=== PATIENT | male | born 1970 | race Hispanic/Latino ===

== ENCOUNTER 2017-11-23 03:30 | Emergency (ER) | payer OTHER ==
[~2017-11-23] VITALS: Ht 157.5 cm; Wt 144.2 kg
[~2017-11-23 03:30] MED LIST: ALDACTONE25 MG PO; AMOXICILLIN250 MG PO; ASPIR 8181 MG PO; CARAFATE1 GM PO; DIGOXIN125 MCG PO; FUROSEMIDE40 MG PO; KLOR-CON M2020 MEQ PO; LASIX40 MG PO; LISINOPRIL2.5 MG PO; METOLAZONE5 MG PO; PROMETHAZINE HC25 M1 PO; PROTONIX40 MG/ML PO
[2017-11-23] MEDS ORDERED: OXYMETAZOLINE HCL 0.05% NAS 1 SPRAY BTL STA (03:51)
[2017-11-23] MEDS ORDERED: SILVER NITRATE SWABS ONE (04:42)
[2017-11-23] MEDS ORDERED: SILVER NITRATE SWABS TOP ONE (04:45)
== END 2017-11-23 07:11 | disposition home or self-care (01) ==
LOC: ER 03:30
DX: R04.0 Epistaxis (principal); I50.9 Heart failure, unspecified; M10.9 Gout, unspecified
CPT/HCPCS: 99283

== ENCOUNTER 2018-02-18 15:30 | Emergency (ER) | payer OTHER ==
[~2018-02-18] VITALS: Ht 157.5 cm; Wt 135.2 kg
--- OUTSIDE RECORDS SUMMARY | 2018-02-18 15:32 | XMS REPORT | Continuity of Care Document ---
Author Author [facility] Organization [facility] Address [address] [place] [address] Phone Unavailable Care Team Providers Care Consumer Science Teacher Name Role Phone JEN BELTRAN DO PCP Insurance Providers [employer]or [employer] Address [address] [place] [address] Payer [facility] Policy Number [id number] Subscriber's Name [employer] Relationship 18 Self / Same As Patient Effective Date 15 Expiration Date 16 Advance Directives Directive Response Recorded Date/Time Does the patient have an advance directive? No 07/26/16 7:10pm If yes, is advance directive on file with [facility]? No 07/26/16 7:10pm If not on file with [facility] will patient provide a copy? No 07/26/16 7:10pm Do you have a Directive to Physician? No 11/23/17 6:37am Do you have a Medical Power of Svp Group Director? No 11/23/17 6:37am Do you have an out of hospital Do Not Resuscitate Order? No 11/23/17 6:37am Do you have any special needs we should be aware of? No 11/23/17 6:37am Do you have a support person here with you today? Yes 11/23/17 6:37am Did patient receive Notice of Privacy Practices? Yes 11/23/17 6:37am Did patient receive patient rights and responsibilities? Yes 11/23/17 6:37am Problems Medical Problem Onset Date Status CHF (congestive heart failure) Unknown Hypoxia 10/14/2015 Acute Pulmonary edema 10/14/2015 Acute Medications Current Home Medications Medication Dose Units Route Directions Days Qty Instructions Start Date Aspirin (Aspir 81) 81 Mg Tablet.dr 81 Mg Oral Daily Digoxin 125 Mcg Tablet 0.125 Mg Oral Daily 30 Tab Furosemide 40 Mg Tablet 40 Mg Oral Daily 30 Tab 07/28/16 Lisinopril 2.5 Mg Tablet 5 Mg Oral Daily 30 Days 07/28/16 Metolazone 5 Mg Tablet 10 Mg Oral Daily 30 Tab Pantoprazole Sod (Protonix) 40 Mg/Ml Susp 40 Mg Oral Twice Daily Before Meals 30 Days 07/28/16 Potassium Chloride (Klor-Con M20) 20 Meq Tabcr 20 Meq Oral Daily 30 Days 07/28/16 Promethazine Hcl 25 Mg Tablet 1 Tsp Oral Every 6 Hours Sucralfate (Carafate) 1 Gm Tablet 1 Gm Oral Four Times Daily 30 Days 30 07/28/16 Past Home Medications Medication Directions Ordered Status Amoxicillin 250 Mg Capsule, 500 Mg Oral Three Times A Day Discontinued Furosemide (Lasix) 40 Mg Tablet, 80 Mg Oral Daily Discontinued Spironolactone (Aldactone) 25 Mg Tablet, 50 Mg Oral Daily Discontinued Social History Social History Problem Response Recorded Date/Time Onset Date Status Hx Psychiatric Problems No 07/26/2016 7:10pm Not Applicable Not Applicable Hx Eating Disorder No 07/26/2016 7:10pm Not Applicable Not Applicable Hx Substance Use Disorder No 07/26/2016 7:10pm Not Applicable Not Applicable Hx Depression No 07/26/2016 7:10pm Not Applicable Not Applicable Hx Alcohol Use No 07/26/2016 7:10pm Not Applicable Not Applicable Hx Substance Use Treatment No 07/26/2016 7:10pm Not Applicable Not Applicable Hx Physical Abuse No 07/26/2016 7:10pm Not Applicable Not Applicable Smoking Status Start Date Stop Date Never Smoker Hospital Discharge Instructions No hospital discharge instruction information available. Plan of Care Discharge Date 11/23/17 7:11am Disposition HOME, SELF-CARE Condition at Discharge Stable Instructions/Education Provided Epistaxis - Adult Forms Provided Work/School Excuse Prescriptions See Medication Section Referrals THEODORE DAVALOS MD Address: [address] [place] [address] [address] [address] Functional Status No functional status information available. Allergies, Adverse Reactions, Alerts No known allergies. Immunizations No immunization information available. Vital Signs Acute Vital Signs Vital Response Date/Time Height 5 ft 2 in 11/23/2017 3:46am Weight 318 lb 11/23/2017 3:46am Body Mass Index 58.2 kg/m^2 11/23/2017 3:46am Results No relevant diagnostic test, laboratory data and/or discharge summary information available. Procedures No procedure information available. Encounters Encounter Location Arrival/Admit Date Discharge/Depart Date Attending Provider Departed Emergency Room [facility] 11/23/17 3:30am 7:11am BIB SNOW MD
[2018-02-18] MEDS ORDERED: INDOMETHACIN 75 MG CAPCR PO SCH (15:45)
[2018-02-18] MEDS ORDERED: DEXAMETHASONE SOD PHOS 10 MG/1 ML VIAL INJ ONE (16:00)
[2018-02-18] MEDS ORDERED: HYDROCODONE/APAP 10MG-325MG TAB PO ONE (16:00)
--- NOTE | 2018-02-18 16:03 | Diagnostic Imaging Report ---
Left Ankle - 3 views HISTORY: Pain. COMPARISON: None available. FINDINGS: Bones: No acute displaced fracture. Well corticated bone fragment is noted inferior to the medial malleolus. No expansile lytic or sclerotic lesion. Joints: The joint spaces are well-maintained. No dislocation. Soft tissues: Soft tissue swelling is present in the medial and lateral malleoli. IMPRESSION: Well corticated bone fragment inferior to the medial malleolus may represent an avulsion fracture. No acute displaced fracture or dislocation. Soft tissue swelling may represent a ligamentous injury. Signed by: Dr. Papa Alvarado M.D. on 02/18/2018 3:59 PM
[2018-02-18] MEDS ORDERED: ULORIC80 MG PO (16:18)
[2018-02-18] MEDS ORDERED: POTASSIUM CHLORIDE PO (16:18)
[2018-02-18] MEDS ORDERED: INDOMETHACIN50 MG PO (16:18)
[2018-02-18] MEDS ORDERED: PANTOPRAZOLE SO40 MG PO (16:18)
[2018-02-18 16:43] LABS: BASOPHILS # (AUTO) 0.1 (0.0-0.1); BASOPHILS % 1.3 % (0.0-1.0); EOSINOPHILS # (AUTO) 0.1 (0.0-0.4); EOSINOPHILS % 1.3 % (0.0-6.0); HEMATOCRIT 55.3 % (38.2-49.6); HEMOGLOBIN 19.1 g/dL (14.0-18.0); LYMPHOCYTES # (AUTO) 1.3 (1.0-3.2); LYMPHOCYTES % 13.8 % (18.0-39.1); MEAN CORPUSCULAR HEMOGLOBIN 31.1 pg (28-32); MEAN CORPUSCULAR HGB CONC 34.5 g/dL (31-35); MEAN CORPUSCULAR VOLUME 89.9 fL (81-99); MONOCYTES # (AUTO) 0.9 (0.2-0.8); MONOCYTES % 10.4 % (4.4-11.3); NEUTROPHILS # (AUTO) 6.6 (2.1-6.9); NEUTROPHILS % 72.5 % (38.7-80.0); PLATELET COUNT 237 x10e3/uL (140-360); RED BLOOD COUNT 6.15 x10e6/uL (4.3-5.7); RED CELL DISTRIBUTION WIDTH 14.2 % (11.7-14.4)
[2018-02-18 17:11] LABS: ALANINE AMINOTRANSFERASE 16 IU/L (0-55); ALBUMIN 3.4 g/dL (3.5-5.0); ALBUMIN/GLOBULIN RATIO 0.7 (0.8-2.0); ALKALINE PHOSPHATASE 161 IU/L (40-150); ANION GAP 17.9 mmol/L (8-16); BLOOD UREA NITROGEN 34 mg/dL (7-26); BUN/CREATININE RATIO 28 (6-25); CALCIUM 10.3 mg/dL (8.4-10.2); CARBON DIOXIDE 26 mmol/L (22-29); CHLORIDE 97 mmol/L (98-107); CREATININE, SERUM 1.21 mg/dL (0.72-1.25); EST GLOMERULAR FILTRATION RATE > 60 ML/MIN (60-); GLUCOSE 115 mg/dL (74-118); SODIUM 138 mmol/L (136-145)
[2018-02-18 17:14] LABS: POTASSIUM 2.9 mmol/L (3.5-5.1)
[2018-02-18] MEDS ORDERED: POTASSIUM CHLORIDE 20 MEQ TAB CR PO ONE (18:00)
== END 2018-02-18 18:53 | disposition home or self-care (01) ==
LOC: ER 15:30
DX: M10.072 Idiopathic gout, left ankle and foot (principal); M25.572 Pain in left ankle and joints of left foot
CPT/HCPCS: 36415; 73610; 80053; 84550; 85025; 99283; J1100

== ENCOUNTER 2018-03-11 09:37 | Emergency (ER) | payer OTHER ==
[~2018-03-11] VITALS: Ht 157.5 cm; Wt 131.1 kg
[~2018-03-11 09:37] MED LIST changes: +INDOMETHACIN50 MG PO; +PANTOPRAZOLE SO40 MG PO; +POTASSIUM CHLORIDE PO; +ULORIC80 MG PO
--- OUTSIDE RECORDS SUMMARY | 2018-03-11 09:39 | XMS REPORT ---
Author Author [facility] Address Unknown Phone Unavailable Care Team Providers Care Ict Teacher Name Role Phone BIB SNOW Unavailable Unavailable Problems This patient has no known problems. Allergies, Adverse Reactions, Alerts This patient has no known allergies or adverse reactions. Medications This patient has no known medications. Results Test Description Test Time Test Comments Text Results Atomic Results Result Comments ANKLE 3+ VIEWS LEFT [facility] [address] [address] Patient Name: RUCHI STOKES MR #: [id number] : 1970 Age/Sex: 47/M Req #: [id number] Adm Physician: Ordered by: ALIE EDMONDSON DISTRIBUTION OPERATIONS MANAGER Report #: [id number] Location: ER Room/Bed: Procedure: [id number] DX/ANKLE 3+ VIEWS LEFT Exam Date: Exam Time: REPORT STATUS: Signed Left Ankle - 3 views HISTORY: Pain. COMPARISON: None available. FINDINGS: Bones: No acute displaced fracture. Well corticated bone fragment is noted inferior to the medial malleolus. No expansile lytic or sclerotic lesion. Joints: The joint spaces are well-maintained. No dislocation. Soft tissues: Soft tissue swelling is present in the medial and lateral malleoli. IMPRESSION: Well corticated bone fragment inferior to the medial malleolus may represent an avulsion fracture. No acute displaced fracture or dislocation. Soft tissue swelling may represent a ligamentous injury. Signed by: Dr. Dutch Starr M.D. on 02/18/2018 3:59 PM Dictated By: DUTCH STARR MD [id number] Transcribed By: PRIMO on 02/18/18 [id number] COPY TO: ALIE EDMONDSON NP
--- OUTSIDE RECORDS SUMMARY | 2018-03-11 09:39 | XMS REPORT | Continuity of Care Document ---
Author Author [facility] Organization [facility] Address [address] [place] [address] Phone Unavailable Care Team Providers Care Pig Iron Loader Name Role Phone JEN BELTRAN DO PCP Insurance Providers Guarantor [employer] Address [address] [place] [address] Email NONE Payer [facility] Policy Number [id number] Subscriber's Name [employer] Relationship 18 Self / Same As Patient Effective Date 15 Expiration Date 16 Advance Directives Directive Response Recorded Date/Time Does the patient have an advance directive? No 07/26/16 7:10pm If yes, is advance directive on file with [facility]? No 07/26/16 7:10pm If not on file with [facility] will patient provide a copy? No 07/26/16 7:10pm Do you have a Directive to Physician? No 02/18/18 3:43pm Do you have a Medical Power of Middle School Baseball Coach? No 02/18/18 3:43pm Do you have an out of hospital Do Not Resuscitate Order? No 02/18/18 3:43pm Do you have any special needs we should be aware of? No 02/18/18 3:43pm Do you have a support person here with you today? Yes 02/18/18 3:43pm Did patient receive Notice of Privacy Practices? Yes 02/18/18 3:43pm Did patient receive patient rights and responsibilities? Yes 02/18/18 3:43pm Problems Medical Problem Onset Date Status CHF (congestive heart failure) Unknown Hypoxia 10/14/2015 Acute Pulmonary edema 10/14/2015 Acute Medications Current Home Medications Medication Dose Units Route Directions Days Qty Instructions Start Date Aspirin (Aspir 81) 81 Mg Tablet.dr 81 Mg Oral Daily Febuxostat (Uloric) 80 Mg Tablet 80 Mg Oral Daily 30 Tab Furosemide 40 Mg Tablet 40 Mg Oral Daily 30 Tab 07/28/16 Indomethacin 50 Mg Capsule 50 Mg Oral Twice A Day as needed for Pain Metolazone 5 Mg Tablet 10 Mg Oral Daily 30 Tab Pantoprazole Sodium (Protonix) 40 Mg Tablet.dr 40 Mg Oral Daily Potassuim Cl Susp 20 Meq Oral Daily Past Home Medications Medication Directions Ordered Status Amoxicillin 250 Mg Capsule, 500 Mg Oral Three Times A Day Discontinued Digoxin 125 Mcg Tablet, 0.125 Mg Oral Daily Discontinued Furosemide (Lasix) 40 Mg Tablet, 80 Mg Oral Daily Discontinued Lisinopril 2.5 Mg Tablet, 5 Mg Oral Daily 07/28/16 Discontinued Pantoprazole Sod (Protonix) 40 Mg/Ml Susp, 40 Mg Oral Twice Daily Before Meals 07/28/16 Discontinued Potassium Chloride (Klor-Con M20) 20 Meq Tabcr, 20 Meq Oral Daily 07/28/16 Discontinued Promethazine Hcl 25 Mg Tablet, 1 Tsp Oral Every 6 Hours Discontinued Spironolactone (Aldactone) 25 Mg Tablet, 50 Mg Oral Daily Discontinued Sucralfate (Carafate) 1 Gm Tablet, 1 Gm Oral Four Times Daily 07/28/16 Discontinued Social History Social History Problem Response [...] information available. Plan of Care Discharge Date 02/18/18 6:53pm Disposition HOME, SELF-CARE Condition at Discharge Stable Instructions/Education Provided Gout Forms Provided Work/School Excuse Prescriptions See Medication Section Referrals JEN BELTRAN DO Address: [address] [place] [address] REBECCA DONOVAN MD Address: [address] [place] [address] [address] [place] [address] Additional Instructions/Education 1. increase oral fluids 2. follow up with your doctor in 1-2 days without fail 3. return to ed as needed 4. crutches / acewrap if comfortable Functional Status No functional status information available. Allergies, Adverse Reactions, Alerts No known allergies. Immunizations No immunization information available. Vital Signs Acute Vital Signs Vital Response Date/Time Height 5 ft 2 in 02/18/2018 4:04pm Weight 298 lb 02/18/2018 4:04pm Body Mass Index 54.5 kg/m^2 02/18/2018 4:04pm Results Laboratory Results Test Name Result Units Flags Reference Collection Date/Time Result Date/ Time Comments White Blood Count 9.06 x10e3/uL 4.8-10.8 02/18/2018 4:20pm 02/18/2018 4 :44pm Red Blood Count 6.15 x10e6/uL H 4.3-5.7 02/18/2018 4:20pm 02/18/2018 4: 44pm Hemoglobin 19.1 g/dL H 14.0-18.0 02/18/2018 4:20pm 02/18/2018 4:44pm Hematocrit 55.3 % H 38.2-49.6 02/18/2018 4:20pm 02/18/2018 4:44pm Mean Corpuscular Volume 89.9 fL 81-99 02/18/2018 4:20pm 02/18/2018 4: 44pm Mean Corpuscular Hemoglobin 31.1 pg 28-32 02/18/2018 4:20pm 02/18/2018 4:44pm Mean Corpuscular Hemoglobin Concent 34.5 g/dL 31-35 02/18/2018 4:20pm 02/18/2018 4:44pm Red Cell Distribution Width 14.2 % 11.7-14.4 02/18/2018 4:20pm 2017 4:44pm Platelet Count 237 x10e3/uL 140-360 02/18/2018 4:20pm 02/18/2018 4: 44pm Neutrophils (%) (Auto) 72.5 % 38.7-80.0 02/18/2018 4:20pm 02/18/2018 4: 44pm Lymphocytes (%) (Auto) 13.8 % L 18.0-39.1 02/18/2018 4:20pm 02/18/2018 4 :44pm Monocytes (%) (Auto) 10.4 % 4.4-11.3 02/18/2018 4:20pm 02/18/2018 4: 44pm Eosinophils (%) (Auto) 1.3 % 0.0-6.0 02/18/2018 4:20pm 02/18/2018 4: 44pm Basophils (%) (Auto) 1.3 % H 0.0-1.0 02/18/2018 4:20pm 02/18/2018 4: 44pm IM GRANULOCYTES % 0.7 % 0.0-1.0 02/18/2018 4:20pm 02/18/2018 4:44pm Neutrophils # (Auto) 6.6 2.1-6.9 02/18/2018 4:20pm 02/18/2018 4:44pm Lymphocytes # (Auto) 1.3 1.0-3.2 02/18/2018 4:20pm 02/18/2018 4:44pm Monocytes # (Auto) 0.9 H 0.2-0.8 02/18/2018 4:20pm 02/18/2018 4:44pm Eosinophils # (Auto) 0.1 0.0-0.4 02/18/2018 4:20pm 02/18/2018 4:44pm Basophils # (Auto) 0.1 0.0-0.1 02/18/2018 4:20pm 02/18/2018 4:44pm Absolute Immature Granulocyte (auto 0.06 x10e3/uL 0-0.1 02/18/2018 4: 20pm 02/18/2018 4:44pm Sodium Level 138 mmol/L 136-145 02/18/2018 4:20pm 02/18/2018 5:15pm Potassium Level 2.9 mmol/L *L 3.5-5.1 02/18/2018 4:20pm 02/18/2018 5: 15pm Results called to Annette/RN at 1713 on 02/18/18 by Kan Gilliland. RB OK. Chloride Level 97 mmol/L L 98-107 02/18/2018 4:20pm 02/18/2018 5:15pm Carbon Dioxide Level 26 mmol/L 22-29 02/18/2018 4:20pm 02/18/2018 5: 15pm Anion Gap 17.9 mmol/L H 8-16 02/18/2018 4:20pm 02/18/2018 5:15pm Blood Urea Nitrogen 34 mg/dL H 7-02/18/2018 4:20pm 02/18/2018 5:15pm Creatinine 1.21 mg/dL 0.72-1.25 02/18/2018 4:20pm 02/18/2018 5:15pm BUN/Creatinine Ratio 28 H 6-02/18/2018 4:20pm 02/18/2018 5:15pm Estimat Glomerular Filtration Rate > 60 ML/MIN 60- 02/18/2018 4:20 5:15pm Ranges were taken from the National Kidney Disease Education Program and the National Kidney Foundation literature. Reference ranges: 60 or greater: Normal 16-59 (for 3 consecutive months): Chronic kidney disease 15 or less: Kidney failure Glucose Level 115 mg/dL 74-118 02/18/2018 4:20pm 02/18/2018 5:15pm Calcium Level 10.3 mg/dL H 8.4-10.2 02/18/2018 4:20pm 02/18/2018 5:15pm Uric Acid 9.5 mg/dL H 4.8-8.0 02/18/2018 4:20pm 02/18/2018 5:35pm Total Bilirubin 2.4 mg/dL H 0.2-1.2 02/18/2018 4:20pm 02/18/2018 5:15pm Aspartate Amino Transf (AST/SGOT) 18 IU/L 5-34 02/18/2018 4:20pm 2017 5:15pm Alanine Aminotransferase (ALT/SGPT) 16 IU/L 0-55 02/18/2018 4:20pm 5:15pm Total Protein 8.6 g/dL H 6.5-8.1 02/18/2018 4:20pm 02/18/2018 5:15pm Albumin 3.4 g/dL L 3.5-5.0 02/18/2018 4:20pm 02/18/2018 5:15pm Globulin 5.2 g/dL H 2.3-3.5 02/18/2018 4:20pm 02/18/2018 5:15pm Albumin/Globulin Ratio 0.7 L 0.8-2.0 02/18/2018 4:20pm 02/18/2018 5: 15pm Alkaline Phosphatase 161 IU/L H 40-150 02/18/2018 4:20pm 02/18/2018 5: 15pm Procedures No procedure information available. Encounters Encounter Location Arrival/Admit Date Discharge/Depart Date Attending Provider Departed Emergency Room [facility] 02/18/18 3:30pm 6:53pm BIB SNOW MD Departed Emergency Room [facility] 11/23/17 3:30am 7:11am BIB SNOW MD
[2018-03-11 10:58] LABS: BASOPHILS # (AUTO) 0.1 (0.0-0.1); BASOPHILS % 0.9 % (0.0-1.0); EOSINOPHILS # (AUTO) 0.2 (0.0-0.4); HEMATOCRIT 51.1 % (38.2-49.6); HEMOGLOBIN 17.7 g/dL (14.0-18.0); LYMPHOCYTES # (AUTO) 1.4 (1.0-3.2); LYMPHOCYTES % 18.1 % (18.0-39.1); MEAN CORPUSCULAR HEMOGLOBIN 31.2 pg (28-32); MEAN CORPUSCULAR HGB CONC 34.6 g/dL (31-35); MONOCYTES # (AUTO) 0.7 (0.2-0.8); MONOCYTES % 9.4 % (4.4-11.3); NEUTROPHILS # (AUTO) 5.2 (2.1-6.9); NEUTROPHILS % 67.9 % (38.7-80.0); PLATELET COUNT 229 x10e3/uL (140-360); RED BLOOD COUNT 5.68 x10e6/uL (4.3-5.7); RED CELL DISTRIBUTION WIDTH 13.8 % (11.7-14.4)
[2018-03-11 11:14] LABS: ALANINE AMINOTRANSFERASE 13 IU/L (0-55); ALBUMIN 3.4 g/dL (3.5-5.0); ALBUMIN/GLOBULIN RATIO 0.8 (0.8-2.0); ALKALINE PHOSPHATASE 134 IU/L (40-150); ANION GAP 17.7 mmol/L (8-16); BLOOD UREA NITROGEN 24 mg/dL (7-26); BUN/CREATININE RATIO 25 (6-25); CALCIUM 9.9 mg/dL (8.4-10.2); CARBON DIOXIDE 27 mmol/L (22-29); CHLORIDE 97 mmol/L (98-107); CREATININE, SERUM 0.96 mg/dL (0.72-1.25); EST GLOMERULAR FILTRATION RATE > 60 ML/MIN (60-); GLUCOSE 113 mg/dL (74-118); SODIUM 139 mmol/L (136-145)
[2018-03-11 11:16] LABS: POTASSIUM 2.7 mmol/L (3.5-5.1)
[2018-03-11] MEDS ORDERED: POTASSIUM CHLORIDE 20 MEQ TAB CR PO NR (11:45)
[2018-03-11 12:39] VITALS: BP 101/60
== END 2018-03-11 13:09 | disposition home or self-care (01) ==
LOC: ER 09:37
DX: M62.81 Muscle weakness (generalized) (principal); E87.6 Hypokalemia; M10.062 Idiopathic gout, left knee; M10.061 Idiopathic gout, right knee; I50.9 Heart failure, unspecified; E66.9 Obesity, unspecified
CPT/HCPCS: 36415; 80053; 85025; 99284

== ENCOUNTER 2019-02-03 21:21 | Emergency (ER) | payer OTHER ==
[~2019-02-03] VITALS: Ht 157.5 cm; Wt 127.0 kg
[2019-02-03] MEDS ORDERED: SODIUM CHLORIDE 0.9% 1000ML 1,000 ML IV STA (21:39)
[2019-02-03] MEDS ORDERED: ONDANSETRON HCL INJ 2MG/ML 2ML 2 MG/ML VIAL IV STA (21:39)
[2019-02-03] MEDS ORDERED: MORPHINE SULFATE INJ 4 MG/ML INJ 1ML IV STA (21:39)
--- NOTE | 2019-02-03 21:50 | NUR ---
RADIOLOGY AT BEDSIDE FOR CXR AT THIS TIME.
[2019-02-03] MEDS ORDERED: SODIUM CHLORIDE 0.9% 500ML 500 ML IV ONE (22:00)
--- NOTE | 2019-02-03 22:20 | Diagnostic Imaging Report ---
EXAMINATION: CHEST SINGLE (PORTABLE) INDICATION: ^ABD PAIN COMPARISON: Chest x-ray 07/25/2016 FINDINGS: AP view TUBES and LINES: None. LUNGS: Lungs are well inflated. There are bibasilar atelectasis. Pulmonary arterial hypertension and pulmonary venous congestion. PLEURA: No pleural effusion or pneumothorax. HEART AND MEDIASTINUM: Cardiac size is moderately enlarged. Enlargement pulmonary artery and left atrial bulge. BONES AND SOFT TISSUES: No acute osseous lesion. Soft tissues are unremarkable. UPPER ABDOMEN: No free air under the diaphragm. IMPRESSION: Unchanged moderate cardiomegaly with pulmonary arterial hypertension and venous congestion. Signed by: Dr. Alonzo Zee M.D. on 02/03/2019 10:17 PM
[2019-02-03 22:50] LABS: BASOPHILS # (AUTO) 0.1 (0.0-0.1); BASOPHILS % 0.7 % (0.0-1.0); EOSINOPHILS # (AUTO) 0.2 (0.0-0.4); EOSINOPHILS % 1.6 % (0.0-6.0); HEMATOCRIT 58.6 % (38.2-49.6); HEMOGLOBIN 19.5 g/dL (14.0-18.0); LYMPHOCYTES # (AUTO) 1.3 (1.0-3.2); LYMPHOCYTES % 9.9 % (18.0-39.1); MEAN CORPUSCULAR HEMOGLOBIN 32.6 pg (28-32); MEAN CORPUSCULAR HGB CONC 33.3 g/dL (31-35); MONOCYTES # (AUTO) 1.2 (0.2-0.8); NEUTROPHILS # (AUTO) 10.5 (2.1-6.9); NEUTROPHILS % 78.3 % (38.7-80.0); PLATELET COUNT 152 x10e3/uL (140-360); RED BLOOD COUNT 5.98 x10e6/uL (4.3-5.7); RED CELL DISTRIBUTION WIDTH 12.7 % (11.7-14.4)
[2019-02-03 23:00] LABS: INR 1.1; PROTHROMBIN TIME 14.7 seconds (11.9-14.5)
--- NOTE | 2019-02-03 23:00 | NUR ---
REPORT GIVEN TO JIM MOHAN. PT RESTING IN BED, BREATHING EVEN/UNLABORED, NAD NOTED.
[2019-02-03 23:10] LABS: ALANINE AMINOTRANSFERASE 16 IU/L (0-55); ALBUMIN 3.8 g/dL (3.5-5.0); ALBUMIN/GLOBULIN RATIO 1.1 (0.8-2.0); ALKALINE PHOSPHATASE 124 IU/L (40-150); AMYLASE 31 U/L (25-125); ANION GAP 14.8 mmol/L (8-16); BLOOD UREA NITROGEN 21 mg/dL (7-26); BUN/CREATININE RATIO 22 (6-25); CALCIUM 9.6 mg/dL (8.4-10.2); CARBON DIOXIDE 25 mmol/L (22-29); CHLORIDE 102 mmol/L (98-107); CREATINE KINASE 51 IU/L (30-200); CREATININE, SERUM 0.94 mg/dL (0.72-1.25); EST GLOMERULAR FILTRATION RATE > 60 ML/MIN (60-); GLUCOSE 73 mg/dL (74-118); LIPASE 18 U/L (8-78); MAGNESIUM 1.8 MG/DL (1.3-2.1); POTASSIUM 3.8 mmol/L (3.5-5.1); SODIUM 138 mmol/L (136-145)
[2019-02-03 23:12] LABS: CLARITY,URINE CLEAR (CLEAR); COLOR,URINE YELLOW (YELLOW); KETONES,URINE NEGATIVE (NEGATIVE); LEUKOCYTE ESTERASE ,URINE NEGATIVE (NEGATIVE); NITRITE,URINE NEGATIVE (NEGATIVE); PROTEIN,URINE DIPSTICK NEGATIVE (NEGATIVE)
[2019-02-03 23:13] LABS: BACTERIA,URINE RARE /HPF; BILIRUBIN,URINE NEGATIVE (NEGATIVE); EPITHELIAL CELLS,URINE FEW /LPF; RBC,URINE 0-5 /HPF (0-5); URINE UROBILINOGEN 4 mg/dL (0.2 - 1); WBC,URINE (MAN) 0-5 /HPF (0-5)
[2019-02-04] MEDS ORDERED: SODIUM CHLORIDE 0.9% 50ML 50 ML ONE
[2019-02-04] MEDS ORDERED: IOPAMIDOL 370 MG/ML 200 ML INFUS..BTL INJ ONE
--- NOTE | 2019-02-04 00:49 | Diagnostic Imaging Report ---
EXAM: CT Abdomen and Pelvis WITH contrast INDICATION: ^RUQ/GLO ABD PAIN COMPARISON: Report of CT abdomen pelvis performed on 07/25/2016. TECHNIQUE: Abdomen and pelvis were scanned utilizing a multidetector helical scanner from the lung base to the pubic symphysis after administration of IV contrast. Coronal and sagittal reformations were obtained. Routine protocol was performed. Scan was performed when during portal venous phase. IV CONTRAST: 100 mL of Isovue 370 ORAL CONTRAST: Water COMPLICATIONS: None RADIATION DOSE: Total DLP: 827.97 mGy*cm Estimated effective dose: (DLP x 0.015 x size factor) mSv CTDIvol has been reviewed. It is below the limits set by the Radiation Protocol Committee (RPC). Dose modulation, iterative reconstruction, and/or weight based adjustment of the mA/kV was utilized to reduce the radiation dose to as low as reasonably achievable. FINDINGS: LINES and TUBES: None. LOWER THORAX: Atelectasis in both lower lobes with questionable more focal groundglass opacity in the right lower lobe. Mild air trapping in the left lower lobe. Moderate cardiomegaly with large right atrium and right ventricle with straightening of the interventricular septum bowing to the left side of the heart. HEPATOBILIARY: Mildly enlargement of the left hepatic lobe. No significant surface nodularity. No focal hepatic lesions. No biliary ductal dilation. GALLBLADDER: No radio-opaque stones or sludge. No wall thickening. SPLEEN: No splenomegaly. PANCREAS: No focal masses or ductal dilatation. ADRENALS: No adrenal nodules KIDNEYS/URETERS: Kidneys enhance symmetrically. No hydronephrosis. No cystic or solid mass lesions. No stones. GI TRACT: Focal 3.5 cm long wall thickening of the hepatic flexure of the colon (series 2, image 35). No abnormal distention, wall thickening, or evidence of bowel obstruction. There are diverticula within the colon without evidence of diverticulitis. Appendix is normal. PELVIC ORGANS/BLADDER: Bladder is incompletely distended but but there may be mild wall thickening with mild surrounding inflammatory changes. Prostate measures 6.0 cm in transverse dimension. LYMPH NODES: No lymphadenopathy. VESSELS: There is mild atherosclerotic disease in the aorta and major arterial branches. PERITONEUM / RETROPERITONEUM: No free air or fluid. BONES: Unremarkable. SOFT TISSUES: Unremarkable. IMPRESSION: 1. Bilateral lower lobe atelectasis. Questionable focal pneumonia in the right lower lobe. 2. Moderate cardiomegaly with enlarged right atrium and right ventricle with septal straightening and mild deviation to left. 3. 3.5 cm short segment narrowing of the hepatic flexure of the colon. Recommend colonoscopy to exclude a possible underlying colonic neoplasm. 4. Bladder is incompletely distended with questionable mild wall thickening. Recommend correlation with UA. Signed by: Dr. Alonzo Zee M.D. on 02/04/2019 12:46 AM
[2019-02-04 03:11] VITALS: BP 108/58
== END 2019-02-04 03:38 | disposition home or self-care (01) ==
LOC: ER 21:21
DX: R10.11 Right upper quadrant pain (principal); R11.0 Nausea; I50.32 Chronic diastolic (congestive) heart failure
CPT/HCPCS: 36415; 71045; 74177; 80053; 81001; 82150; 82550; 82553; 83690; 83735; 83880; 84484; 85025; 85610; 85730; 99284; J2270; J2405; J7040

== ENCOUNTER 2020-04-23 10:29 | Inpatient (IN) | payer OTHER ==
[~2020-04-23] VITALS: Ht 157.5 cm; Wt 127.0 kg
[2020-04-23] MEDS ORDERED: ONDANSETRON HCL INJ 2MG/ML 2ML 2 MG/ML VIAL IV STA (11:35)
[2020-04-23] MEDS ORDERED: PANTOPRAZOLE 40 MG 10ML VIAL IV STA (11:35)
[2020-04-23 12:17] LABS: BASOPHILS # (AUTO) 0.1 (0.0-0.1); BASOPHILS % 1.5 % (0.0-1.0); EOSINOPHILS # (AUTO) 0.2 (0.0-0.4); HEMATOCRIT 49.7 % (38.2-49.6); HEMOGLOBIN 14.9 g/dL (14.0-18.0); LYMPHOCYTES # (AUTO) 0.9 (1.0-3.2); LYMPHOCYTES % 14.7 % (18.0-39.1); MEAN CORPUSCULAR HEMOGLOBIN 23.5 pg (28-32); MEAN CORPUSCULAR VOLUME 78.5 fL (81-99); MONOCYTES # (AUTO) 0.8 (0.2-0.8); MONOCYTES % 13.6 % (4.4-11.3); NEUTROPHILS % 66.7 % (38.7-80.0); PLATELET COUNT 163 x10e3/uL (140-360); RED BLOOD COUNT 6.33 x10e6/uL (4.3-5.7); RED CELL DISTRIBUTION WIDTH 21.3 % (11.7-14.4)
[2020-04-23 12:33] LABS: INR 1.34; PROTHROMBIN TIME 17.5 seconds (11.9-14.5)
[2020-04-23 12:34] LABS: PARTIAL THROMBOPLASTIN TIME 32.6 seconds (23.8-35.5)
[2020-04-23 12:41] LABS: ALANINE AMINOTRANSFERASE 13 IU/L (0-55); ALBUMIN 3.3 g/dL (3.5-5.0); ALBUMIN/GLOBULIN RATIO 0.9 (0.8-2.0); ALKALINE PHOSPHATASE 184 IU/L (40-150); AMYLASE 28 U/L (25-125); ANION GAP 15.5 mmol/L (8-16); BLOOD UREA NITROGEN 37 mg/dL (7-26); BUN/CREATININE RATIO 32 (6-25); CALCIUM 9.6 mg/dL (8.4-10.2); CARBON DIOXIDE 31 mmol/L (22-29); CHLORIDE 98 mmol/L (98-107); CREATINE KINASE 81 IU/L (30-200); CREATININE, SERUM 1.14 mg/dL (0.72-1.25); EST GLOMERULAR FILTRATION RATE > 60 ML/MIN (60-); GLUCOSE 99 mg/dL (74-118); LIPASE 21 U/L (8-78); MAGNESIUM 1.9 MG/DL (1.3-2.1); SODIUM 142 mmol/L (136-145)
[2020-04-23 12:58] LABS: POTASSIUM 2.5 mmol/L (3.5-5.1)
[2020-04-23] MEDS ORDERED: POTASSIUM CHLORIDE 20 MEQ TAB CR PO STA (13:03)
--- NOTE | 2020-04-23 13:50 | NUR ---
HI FLOW O2 STARTED
--- NOTE | 2020-04-23 13:59 | Diagnostic Imaging Report ---
EXAM: CT Chest, Abdomen and Pelvis WITH intravenous contrast (with pulmonary embolism protocol for the chest) INDICATION: Hypoxia, abdominal pain COMPARISON: CT abdomen and pelvis of 02/04/2019 TECHNIQUE: The chest, abdomen and pelvis were scanned utilizing a multidetector helical scanner from the thoracic inlet to the pubic symphysis following administration of IV contrast. Thin section reconstructions were obtained with special concentration on the pulmonary arteries. Coronal and sagittal reformations were obtained. Scan was performed during portal venous phase. IV CONTRAST: 175cc Isovue 370 ORAL CONTRAST: Water COMPLICATIONS: None RADIATION DOSE: Total DLP: 1904 mGy*cm Dose modulation, iterative reconstruction, and/or weight based adjustment of the mA/kV was utilized to reduce the radiation dose to as low as reasonably achievable. FINDINGS: LINES/ TUBES: None. PULMONARY ARTERIES: No filling defect is identified within the pulmonary arteries to the segmental level. Main pulmonary artery measures 4.8cm in diameter. LUNGS AND AIRWAYS: The central airways are patent. No focal consolidation. Mild smooth interlobular septal thickening can be seen with interstitial pulmonary edema. PLEURA: The pleural spaces are clear. HEART AND MEDIASTINUM: The thyroid gland is normal. No supraclavicular, axillary, mediastinal, or hilar lymphadenopathy. The heart is enlarged. Most notably, there is dilation of the right atrium and ventricle. No pericardial effusion. Scattered atherosclerotic calcifications of the coronary arteries and thoracic aorta. HEPATOBILIARY: Nodular liver surface contour compatible with hepatic cirrhosis. No focal liver lesion. Unremarkable gallbladder. SPLEEN: No splenomegaly. PANCREAS: No focal masses or ductal dilatation. ADRENALS: No adrenal nodules. KIDNEYS/URETERS: No hydronephrosis, stones, or solid mass lesions. PELVIC ORGANS/BLADDER: Unremarkable. PERITONEUM / RETROPERITONEUM: Small volume abdominal ascites. No free air. LYMPH NODES: No lymphadenopathy. VESSELS: Unremarkable. GI TRACT: Diverticulosis without CT evidence of diverticulitis. No abnormal bowel thickening. No bowel obstruction. BONES AND SOFT TISSUES: No acute osseous injury. IMPRESSION: No central pulmonary embolism. Dilation of the main pulmonary artery, right atrium and right ventricle are compatible with pulmonary arterial hypertension and right heart failure. Mild interstitial pulmonary edema. Hepatic cirrhosis. Small volume abdominal ascites. Signed by: Naif Rodriguez MD on 04/23/2020 1:55 PM
[2020-04-23] MEDS ORDERED: SODIUM CHLORIDE 0.9% 50ML 100 ML ONE (14:23)
[2020-04-23] MEDS ORDERED: IOPAMIDOL 370 MG/ML 200 ML INFUS..BTL INJ ONE ×2 (14:23→14:24)
[2020-04-23 15:08] LABS: CLARITY,URINE SL CLOUDY (CLEAR); COLOR,URINE STRAW (YELLOW); KETONES,URINE NEGATIVE (NEGATIVE); LEUKOCYTE ESTERASE ,URINE NEGATIVE (NEGATIVE); NITRITE,URINE NEGATIVE (NEGATIVE); PROTEIN,URINE DIPSTICK NEGATIVE (NEGATIVE)
[2020-04-23 15:09] LABS: BILIRUBIN,URINE NEGATIVE (NEGATIVE); URINE UROBILINOGEN 2 mg/dL (0.2 - 1)
[2020-04-23 15:24] LABS: BACTERIA,URINE RARE /HPF; EPITHELIAL CELLS,URINE FEW /LPF; RBC,URINE 0-5 /HPF (0-5)
[2020-04-23] MEDS ORDERED: FUROSEMIDE INJ 10 MG/ML 4 ML VIAL IV ONE (16:45)
--- NOTE | 2020-04-23 16:50 | Emergency Department Note ---
History of Present Illnes History of Present Illness Chief Complaint: Abdominal Complaints History of Present Illness This is a 49 year old male abd pain x 2 wks. morbidly obese. no distress . Historian: Patient Arrival Mode: Car Re Examiner Required: No Onset (how long ago): week(s) (2) Location: GLO ABD Quality: PAIN Radiation: Reports non-radiation Severity: moderate Onset quality: gradual Timing of current episode: intermittent Progression: waxing and waning Context: Denies recent illness Relieving factors: none Exacerbating factors: none Associated symptoms: Reports denies other symptoms Treatments prior to arrival: none Past Medical/Family History Physician Review I have reviewed the patient's past medical and family history. Any updates have been documented here. Past Medical History Recent Fever: No Clinical Suspicion of Infectio: No New/Unexplained Change in Ment: No Past Medical History: CHF, GERD Other Medical History: GOUT GASTRITIS Past Surgical History: None Social History Smoking Cessation: Never Smoker Counseling Performed: No Alcohol Use: None Any Illegal Drug Use: No TB Exposure/Symptoms: No Physically hurt or threatened: No Other Last Tetanus: OOD Any Pre-Existing Lines (PICC,: No Is patient up to date on immun: Yes Last Flu: utd Last Pneumovax: utd Review of Systems Review of Systems Constitutional: Reports no symptoms EENTM: Reports no symptoms Cardiovascular: Reports no symptoms Respiratory: Reports no symptoms; Denies dyspnea, Denies dyspnea on exertion Gastrointestinal: Reports as per HPI Genitourinary: Reports no symptoms Musculoskeletal: Reports no symptoms Integumentary: Reports no symptoms Neurological: Reports no symptoms Psychological: Reports no symptoms Endocrine: Reports no symptoms Hematological/Lymphatic: Reports no symptoms Physical Exam Related Data Allergies: Coded Allergies: No Known Allergies (Unverified , 03/11/18) Triage Vital Signs Vital Signs Date Time Temp Pulse Resp B/P (MAP) Pulse Ox O2 Delivery O2 Flow Rate FiO2 04/23/20 11:17 96.5 101 18 118/81 79 04/23/20 16:22 15.0 Vital signs reviewed: Yes Physical Exam CONSTITUTIONAL Constitutional: Present well-nourished, Present morbidly obese HENT HENT: Present normocephalic, Present atraumatic, Present oropharynx clear/moist, Present nose normal HENT L/R: Present left ext ear normal, Present right ext ear normal EYES Eyes: Reports PERRL, Reports conjunctivae normal NECK Neck: Present ROM normal PULMONARY Pulmonary: Present effort normal, Present breath sounds normal CARDIOVASCULAR Cardiovascular: Present regular rhythm, Present heart sounds normal, Present capillary refill normal, Present normal rate GASTROINTESTINAL Abdominal: Present soft, Present bowel sounds normal, Present tender (MILD GLO TENDERNESS, NO R/G) GENITOURINARY Genitourinary: Present exam deferred SKIN Skin: Present warm, Present dry MUSCULOSKELETAL Musculoskeletal: Present ROM normal NEUROLOGICAL Neurological: Present alert, Present oriented x 3, Present no gross motor or sensory deficits PSYCHOLOGICAL Psychological: Present mood/affect normal, Present judgement normal Results Laboratory Result Diagram: 04/23/20 1155 04/23/20 1155 Laboratory Laboratory Tests Test 04/23/20 14:45 04/23/20 12:15 04/23/20 11:55 Urine Color Straw (YELLOW) Urine Clarity Sl cloudy (CLEAR) Urine pH 7 (5 - 7) Urine Specific [place] 1.020 (1.010-1.025) Urine Protein Negative (NEGATIVE) Urine Glucose (UA) Negative (NEGATIVE) Urine Ketones Negative (NEGATIVE) Urine Blood Negative (NEGATIVE) Urine Nitrite Negative (NEGATIVE) Urine Bilirubin Negative (NEGATIVE) Urine Urobilinogen 2 mg/dL (0.2 - 1) Urine Leukocyte Esterase Negative (NEGATIVE) Urine RBC 0-5 /HPF (0-5) Urine WBC None /HPF (0-5) Urine Epithelial Cells Few /LPF (NONE) Urine Bacteria Rare /HPF (NONE) White Blood Count 6.05 x10e3/uL (4.8-10.8) Red Blood Count 6.33 x10e6/uL (4.3-5.7) Hemoglobin 14.9 g/dL (14.0-18.0) Hematocrit 49.7 % (38.2-49.6) Mean Corpuscular Volume 78.5 fL (81-99) Mean Corpuscular Hemoglobin 23.5 pg (28-32) Mean Corpuscular Hemoglobin Concent 30.0 g/dL (31-35) Red Cell Distribution Width 21.3 % (11.7-14.4) Platelet Count 163 x10e3/uL (140-360) Neutrophils (%) (Auto) 66.7 % (38.7-80.0) Lymphocytes (%) (Auto) 14.7 % (18.0-39.1) Monocytes (%) (Auto) 13.6 % (4.4-11.3) Eosinophils (%) (Auto) 3.0 % (0.0-6.0) Basophils (%) (Auto) 1.5 % (0.0-1.0) Neutrophils # (Auto) 4.0 (2.1-6.9) Lymphocytes # (Auto) 0.9 (1.0-3.2) Monocytes # (Auto) 0.8 (0.2-0.8) Eosinophils # (Auto) 0.2 (0.0-0.4) Basophils # (Auto) 0.1 (0.0-0.1) Absolute Immature Granulocyte (auto 0.03 x10e3/uL (0-0.1) Prothrombin Time 17.5 seconds (11.9-14.5) Prothromb Time International Ratio 1.34 Activated Partial Thromboplast Time 32.6 seconds (23.8-35.5) Sodium Level 142 mmol/L (136-145) Potassium Level 2.5 mmol/L (3.5-5.1) Chloride Level 98 mmol/L (98-107) Carbon Dioxide Level 31 mmol/L (22-29) Anion Gap 15.5 mmol/L (8-16) Blood Urea Nitrogen 37 mg/dL (7-26) Creatinine 1.14 mg/dL (0.72-1.25) Estimat Glomerular Filtration Rate > 60 ML/MIN (60-) BUN/Creatinine Ratio 32 (6-25) Glucose Level 99 mg/dL (74-118) Calcium Level 9.6 mg/dL (8.4-10.2) Magnesium Level 1.9 MG/DL (1.3-2.1) Total Bilirubin 5.3 mg/dL (0.2-1.2) Aspartate Amino Transf (AST/SGOT) 20 IU/L (5-34) Alanine Aminotransferase (ALT/SGPT) 13 IU/L (0-55) Alkaline Phosphatase 184 IU/L (40-150) Creatine Kinase 81 IU/L (30-200) Creatine Kinase MB 1.30 ng/mL (0-5.0) Troponin I 0.034 ng/mL (0-0.300) B-Type Natriuretic Peptide 814.6 pg/mL (0-100) Total Protein 7.0 g/dL (6.5-8.1) Albumin 3.3 g/dL (3.5-5.0) Globulin 3.7 g/dL (2.3-3.5) Albumin/Globulin Ratio 0.9 (0.8-2.0) Amylase Level 28 U/L (25-125) Lipase 21 U/L (8-78) Assessment & Plan Medical Decision Making MDM PT HYPOXIC BUT NO SX'S, APPEARS MORE LIKE CHF NOT COVID - CHECK CBC, CHEM, CARDIACS, ECG, CT ABD/CHEST Reassessment Reassessment ADMIT TO SWAP[facility] MEI CONSULT Assessment & Plan Final Impression: (1) Abdominal pain (2) CHF (congestive heart failure) (3) Hypoxia Depart Disposition: ADMITTED Last Vital Signs Date Time Temp Pulse Resp B/P (MAP) Pulse Ox O2 Delivery O2 Flow Rate FiO2 04/23/20 16:22 85 22 96 15.0 04/23/20 16:10 97/68 04/23/20 12:04 98.5 Home Meds Active Scripts Furosemide (FUROSEMIDE) 40 Mg Tablet, 40 MG PO Daily, #30 TAB Prov:ARLINE DUNHAM 07/28/16 Reported Medications Pantoprazole Sodium* (PROTONIX) 40 Mg Tablet.dr, 40 MG PO DAILY, TAB 02/18/18 Indomethacin (INDOMETHACIN) 50 Mg Capsule, 50 MG PO BID PRN for PAIN 02/18/18 Metolazone (METOLAZONE) 5 Mg Tablet, 10 MG PO DAILY, #30 TAB 07/25/16 Aspirin (ASPIR 81) 81 Mg Tablet.dr, 81 MG PO DAILY 10/16/15 Discontinued Reported Medications [Potassuim Cl Susp] No Conflict Check, 20 MEQ PO DAILY 02/18/18 Febuxostat (ULORIC) 80 Mg Tablet, 80 MG PO DAILY, #30 TAB 02/18/18 Medications in the ED Pantoprazole Sodium 40 mg ONCE STAT IV Last administered on 04/23/20at 12:03; Admin Dose 40 MG; Start 04/23/20 at 11:35; Stop 04/23/20 at 11:43; Status DC Ondansetron HCl 4 mg ONCE STAT IV Last administered on 04/23/20at 12:03; Admin Dose 4 MG; Start 04/23/20 at 11:35; Stop 04/23/20 at 11:43; Status DC Potassium Chloride 40 meq NOW STAT PO Last administered on 04/23/20at 13:52; Admin Dose 40 MEQ; Start 04/23/20 at 13:03; Stop 04/23/20 at 13:08; Status DC Sodium Chloride 100 ml @ ud STK-MED ONCE .ROUTE ; Start 04/23/20 at 14:23; Stop 04/23/20 at 14:17; Status DC Iopamidol 148,000 mg STK-MED ONCE INJ ; Start 04/23/20 at 14:23; Stop 04/23/20 at 14:17; Status DC Iopamidol 148,000 mg STK-MED ONCE INJ ; Start 04/23/20 at 14:24; Stop 04/23/20 at 14:18; Status DC Furosemide 40 mg ONCE ONCE IV ; Start 04/23/20 at 16:45; Stop 04/23/20 at 16:46 BIB SNOW MD Apr 23, 2020 16:49
[2020-04-23 21:02] LABS: CREATINE KINASE MB 1.2 ng/mL (0-5.0)
[2020-04-24] VITALS (9 sets, daily range): BP systolic 97–179; BP diastolic 64–75
--- NOTE | 2020-04-24 01:50 | NUR ---
PT ID TRANSFERRED FROM ,OT IS AOX3 .RESPIRATIONS ARE EVEN AND UNLABORED RT AC 18G S/L SKIN WARM AND DRY TO TOUCH PT ABD DISTENDED ORIENTED THE PT TO THE ENVIRONMENT TELE #12 SHOWS SINUS TACHY PT IS ON O2 .CALL LIGHT WITH IN REACH .CONTINUE TO MONITOR
[2020-04-24] MEDS ORDERED: ACETAMINOPHEN 325 MG TAB PO PRN ×2 (02:15→09:00)
--- NOTE | 2020-04-24 03:17 | NUR ---
PT REFUSED DRAW BLOOD FOR CARDIAC MARKERS .PT C/O ABOUT THE WAY ER TREATED HIM AND HE WANTED TO GO HOME .CALLED [employer] AND TALKED TO THE PT .PT AGREED TO STAY UNTIL THE DR TALK TO HIM .PT C/O HEADACHE CALLED DR MORIN AND GOT THE ORDER FOR TYLENOL. MEDICATED WITH TYLENOL .PT RESTING .CALL LIGHT WITH IN REACH .CONTINUE TO MONITOR
[2020-04-24] MEDS ORDERED: ONDANSETRON HCL INJ 2MG/ML 2ML 2 MG/ML VIAL IV PRN (05:45)
--- NOTE | 2020-04-24 05:58 | NUR ---
PT RESTING .NO ACUTE DISTRESS NOTED .CALL LIGHT WITH IN REACH ,CONTINUE TO MONITOR
--- NOTE | 2020-04-24 06:50 | NUR ---
BEDSIDE SHIFT REPORT RECEIVED FROM OFF GOING NURSE. PATIENT IS RESTING IN BED, NO ACUTE DISTRESS NOTED. CALL LIGHT WITHIN REACH. BED IN THE LOWEST POSITION.
--- NOTE | 2020-04-24 06:55 | NUR ---
BEDSIDE REPORT GIVEN TO THE ONCOMING NURSE
--- NOTE | 2020-04-24 07:47 | NUR ---
CALLED CONSULT FOR DR. BARCENAS AT THIS TIME.
[2020-04-24] MEDS: PANTOPRAZOLE 40 MG 10ML VIAL IV SCH (08:00)
[2020-04-24] MEDS ORDERED: POTASSIUM CHLORIDE 20 MEQ TAB CR PO STA (08:50)
[2020-04-24] MEDS ORDERED: FAMOTIDINE 20 MG/2 ML VIAL IV SCH (09:00)
[2020-04-24] MEDS ORDERED: FUROSEMIDE INJ 10 MG/ML 4 ML VIAL IV SCH (09:00)
[2020-04-24] MEDS ORDERED: HYDRALAZINE HCL 20 MG/ML VIAL IV PRN (09:00)
[2020-04-24 09:54] LABS: BASOPHILS # (AUTO) 0.1 (0.0-0.1); BASOPHILS % 1.3 % (0.0-1.0); EOSINOPHILS # (AUTO) 0.3 (0.0-0.4); EOSINOPHILS % 3.4 % (0.0-6.0); HEMATOCRIT 52.7 % (38.2-49.6); HEMOGLOBIN 15.4 g/dL (14.0-18.0); LYMPHOCYTES % 13.2 % (18.0-39.1); MEAN CORPUSCULAR HEMOGLOBIN 23.3 pg (28-32); MEAN CORPUSCULAR HGB CONC 29.2 g/dL (31-35); MEAN CORPUSCULAR VOLUME 79.8 fL (81-99); MONOCYTES % 13.4 % (4.4-11.3); NEUTROPHILS # (AUTO) 5.2 (2.1-6.9); PLATELET COUNT 161 x10e3/uL (140-360); RED CELL DISTRIBUTION WIDTH 21.4 % (11.7-14.4)
[2020-04-24] MEDS: ASPIRIN 81 MG CHEW TAB PO SCH (10:06)
[2020-04-24] MEDS: FUROSEMIDE INJ 10 MG/ML 4 ML VIAL IV SCH ×2 (10:06→16:19)
[2020-04-24] MEDS: POTASSIUM CHLORIDE 20 MEQ TAB CR PO SCH ×2 (10:06→16:19)
[2020-04-24] MEDS: METOLAZONE 5 MG TAB PO SCH (10:06)
[2020-04-24 10:17] LABS: ALBUMIN 3.4 g/dL (3.5-5.0); ALBUMIN/GLOBULIN RATIO 0.9 (0.8-2.0); ANION GAP 15.2 mmol/L (8-16); CALCIUM 9.4 mg/dL (8.4-10.2); CREATININE, SERUM 1.27 mg/dL (0.72-1.25); POTASSIUM 3.2 mmol/L (3.5-5.1)
[2020-04-24 11:00] LABS: CREATINE KINASE MB 1.1 ng/mL (0-5.0)
[2020-04-24] MEDS: DOCUSATE SODIUM 100 MG CAP PO SCH ×2 (12:15→16:19)
[2020-04-24 12:25] LABS: CHOL/HDL RATIO 7.6 (3.9-4.7)
[2020-04-24 12:30] LABS: HYPOCHROMASIA SLIGHT
[2020-04-24 14:35] LABS: CREATINE KINASE MB 1.4 ng/mL (0-5.0)
[2020-04-24] MEDS ORDERED: BISACODYL 5 MG TAB EC PO ONE (18:30)
--- NOTE | 2020-04-24 19:21 | NUR ---
BEDSIDE SHIFT REPORT GIVEN TO ONCOMING NURSE. PATIENT IS SITTING UP IN BED. NO ACUTE DISTRESS NOTED. CALL LIGHT WITHIN REACH. BED IN THE LOWEST POSITION. BED ALARM ON.
--- NOTE | 2020-04-24 19:30 | NUR ---
RECEIVED PT SIITING THE SIDE OF THE BED AFTER SHOWER . DENIES PAIN ,.CALL LIGHT WITH IN REACH ,CONTINUE TO MONITOR
[2020-04-25] VITALS: BP 88/48
--- NOTE | 2020-04-25 02:21 | Consultation ---
DATE OF CONSULTATION: 04/24/2020 Cardiology Consult Note REASON FOR CONSULTATION: [id number] systolic congestive heart failure. CHIEF COMPLAINT: Shortness of breath and abdominal bloating. HISTORY OF PRESENT ILLNESS: The patient is a 49-year-old man with history of chronic systolic CHF and cirrhosis, who presents with worsening abdominal swelling and discomfort, and shortness of breath. Denies any chest pain. He says he was diagnosed with heart failure about 2 years ago. No prior history of CAD. Did not know about his cirrhosis. He said, he is feeling better after getting some IV diuretics today. PAST MEDICAL HISTORY: As per HPI, otherwise negative. REVIEW OF SYSTEMS: As per HPI, otherwise negative. SOCIAL HISTORY: He does not smoke, drink, or abuse drugs. FAMILY HISTORY: Noncontributory. OUTPATIENT MEDICATIONS: Reviewed. ALLERGIES: NO KNOWN ALLERGIES. OBJECTIVE: VITAL SIGNS: Temperature afebrile, pulse 95, respiratory rate 20, blood pressure 105/75, saturating 94% on room air. GENERAL: Middle-aged man, well-developed, well-nourished, in no acute distress. CARDIOVASCULAR: Regular rate and rhythm. No murmurs, rubs, or gallops. LUNGS: Diminished breath sounds in bilateral bases. ABDOMEN: Obese, soft, nontender, distended. NEURO AND PSYCH: Alert and oriented. INPATIENT MEDICATIONS: Reviewed. LABORATORY DATA: Reviewed. Potassium 3.2. Troponins negative x3. BNP 800. Creatinine 1.2. IMAGING DATA: Reviewed. Chest CT shows no PE. Dilated pulmonary artery, mild interstitial pulmonary edema, cirrhosis with ascites. TELEMETRY DATA: Reviewed, shows normal sinus rhythm. ASSESSMENT: 1. Recurrent chronic systolic congestive heart failure. 2. Cirrhosis. PLAN: Continue IV diuretics, diuresing well. Echocardiogram is pending. We will defer acute UT with serial troponins. Thank you for this consult. We will continue to follow. MD DAVID Akhtar/SHILPI /[id number]
--- NOTE | 2020-04-25 05:51 | NUR ---
PT RESTED DURING THE NIGHT ,C/O OH HEAD ACHE ,GIVEN TYLENOL,CALL LIGHT WITH IN REACH ,CONTINUE TO MONITOR
[2020-04-25 06:02] LABS: BASOPHILS # (AUTO) 0.1 (0.0-0.1); BASOPHILS % 1.6 % (0.0-1.0); EOSINOPHILS # (AUTO) 0.3 (0.0-0.4); EOSINOPHILS % 3.3 % (0.0-6.0); HEMATOCRIT 50.3 % (38.2-49.6); HEMOGLOBIN 14.9 g/dL (14.0-18.0); LYMPHOCYTES % 12.3 % (18.0-39.1); MEAN CORPUSCULAR HEMOGLOBIN 23.9 pg (28-32); MEAN CORPUSCULAR HGB CONC 29.6 g/dL (31-35); MEAN CORPUSCULAR VOLUME 80.6 fL (81-99); MONOCYTES # (AUTO) 0.9 (0.2-0.8); MONOCYTES % 11.7 % (4.4-11.3); NEUTROPHILS # (AUTO) 5.6 (2.1-6.9); NEUTROPHILS % 70.6 % (38.7-80.0); PLATELET COUNT 168 x10e3/uL (140-360); RED BLOOD COUNT 6.24 x10e6/uL (4.3-5.7); RED CELL DISTRIBUTION WIDTH 20.7 % (11.7-14.4)
[2020-04-25 06:15] LABS: ALBUMIN 3.2 g/dL (3.5-5.0); ALBUMIN/GLOBULIN RATIO 0.9 (0.8-2.0); CALCIUM 9.1 mg/dL (8.4-10.2); CREATININE, SERUM 1.82 mg/dL (0.72-1.25)
--- NOTE | 2020-04-25 07:12 | NUR ---
BEDSIDE REPORT GIVEN TO THE ONCOMING NURSE
[2020-04-25 08:00] VITALS: BP 101/71
[2020-04-25] MEDS ORDERED: POTASSIUM CHLO20 ME1 PO (08:43)
[2020-04-25] MEDS ORDERED: BISACODYL5 MG PO (08:43)
[2020-04-25] MEDS ORDERED: MIRALAX17 GM PO (08:43)
[2020-04-25] MEDS ORDERED: BISACODYL 5 MG TAB EC PO PRN (08:45)
[2020-04-25] MEDS ORDERED: POTASSIUM CHLORIDE 20 MEQ TAB CR PO SCH (09:15)
[2020-04-25] MEDS ORDERED: FUROSEMIDE INJ 10 MG/ML 4 ML VIAL IV SCH (09:30)
[2020-04-25] MEDS ORDERED: POLYETHYLENE GLYCOL 3350 17 GM PACK PO SCH (09:30)
[2020-04-25] MEDS: DOCUSATE SODIUM 100 MG CAP PO SCH (09:55)
[2020-04-25] MEDS: ASPIRIN 81 MG CHEW TAB PO SCH (09:55)
[2020-04-25] MEDS: METOLAZONE 5 MG TAB PO SCH (09:55)
[2020-04-25] MEDS: PANTOPRAZOLE 40 MG 10ML VIAL IV SCH (09:55)
--- NOTE | 2020-04-25 10:21 | NUR ---
Patient's O2 was rechecked by this junior underwriter and respiratory therapist after placing a forehead O2 sensor on and his readings went to 100% on room air for 10 minutes, with ambulation as well. Patient received discharge order from Yoly Baird NP once his O2 readings showed he was stable. Patient IV was removed and covered with a clean, dry dressing at 1015. Patient telemetry was removed and brought to [facility]. Patient given discharge instructions from this junior underwriter, new prescriptions were given and explained, patient had no other questions at this time. Verbalized understanding, waiting for his to arrive to take him home. Addendum: 04/25/20 at 1106 by Angela Zuniga RN Patient discharged and got into 's automobile at 1100. No other issues or complaints.
[2020-04-25 11:49] LABS: HYPOCHROMASIA MODERATE; RBC MORPHOLOGY COMMENT ABNORMAL
[2020-04-26] MEDS ORDERED: POTASSIUM CHLORIDE 20 MEQ TAB CR PO SCH (09:00)
--- NOTE | 2020-04-26 18:59 | Discharge Summary ---
DISCHARGE DIAGNOSES: 1. Rmrml-ya-wtroeli systolic congestive heart failure. 2. Gastritis. 3. Arthritis. 4. Hepatic cirrhosis with ascites. DISCHARGE DIAGNOSES: 1. Omohj-fn-vntmvef systolic congestive heart failure. 2. Gastritis. 3. Arthritis. 4. Hepatic cirrhosis with ascites. 5. Hypokalemia. 6. Rule out coronavirus. 7. Rule out hepatitis. 8. Rule out pulmonary embolism. HISTORY: Chronic systolic CHF, pulmonary hypertension, gastritis, arthritis. SURGICAL HISTORY: None. FAMILY HISTORY: The patient's brother has diabetes. SOCIAL HISTORY: Noncontributory. HOSPITAL COURSE: A 49-year-old male, admits with complaints of bilateral upper quadrant abdominal pain that only occurs when walking. He denies dysuria, vomiting, diarrhea, fever, and chest pain. He does admit to shortness of breath. On admission, the patient's CT of the abdomen showed no central PE, dilatation of the main pulmonary artery, right atrium and right ventricle are compatible with pulmonary arterial hypertension and right heart failure, mild interstitial pulmonary edema, hepatic cirrhosis with small volume ascites. Coronavirus is negative. Hepatitis panel was negative. BNP on admission was 814. Echo showed an EF of 50%. Lipid panel and TSH were within normal limits. Blood cultures were negative and urine culture was negative. The patient was started on IV Lasix and fluids were limited, which improved the CHF, shortness of breath, and abdominal pain. The patient will discharge home with prescriptions for potassium daily as he is already taking Lasix daily and p.r.n. medicine for constipation as he says the potassium makes him constipated. He was advised to follow up with primary care in 1 to 2 weeks and Cardiology as discussed. Fluid restrictions were also discussed. The patient understands instructions and agrees to plan. Vital signs stable. The patient afebrile. Dictated by Yoly Baird NP MD ISAIAH Juarez/MODL /[id number]
== END 2020-04-25 11:00 | disposition home or self-care (01) | DRG 292 ==
LOC: ER 11:01 → ERHOLD 16:40 → MED/SURG 04-24 01:44
PROVIDERS: ADMIT Internal Medicine; ATTEND Internal Medicine
DX: I50.23 Acute on chronic systolic (congestive) heart failure (principal); R18.8 Other ascites; Z68.43 Body mass index [BMI] 50.0-59.9, adult; E66.01 Morbid (severe) obesity due to excess calories; K21.9 Gastro-esophageal reflux disease without esophagitis; M10.9 Gout, unspecified; K29.70 Gastritis, unspecified, without bleeding; R09.02 Hypoxemia; K74.60 Unspecified cirrhosis of liver; E87.6 Hypokalemia; M19.90 Unspecified osteoarthritis, unspecified site; Z83.3 Family history of diabetes mellitus; Z11.59 Encounter for screening for other viral diseases
CPT/HCPCS: 36415; 71260; 74177; 80053; 80061; 81001; 82150; 82550; 82553; 83036; 83690; 83735; 83880; 84443; 84484; 85025; 85610; 85730; 87040; 87086; 87635; 93005; 93306; 99284; J1940; J2405; Q9967

== ENCOUNTER 2020-07-13 11:15 | Inpatient (IN) | payer OTHER ==
[~2020-07-13] VITALS: Ht 157.5 cm; Wt 158.4 kg
[~2020-07-13 11:15] MED LIST changes: +BISACODYL5 MG PO; +MIRALAX17 GM PO; +POTASSIUM CHLO20 ME1 PO
[2020-07-13 11:45] LABS: BASOPHILS # (AUTO) 0.1 (0.0-0.1); BASOPHILS % 0.8 % (0.0-1.0); EOSINOPHILS # (AUTO) 0.1 (0.0-0.4); EOSINOPHILS % 1.5 % (0.0-6.0); HEMATOCRIT 50.6 % (38.2-49.6); HEMOGLOBIN 15.8 g/dL (14.0-18.0); LYMPHOCYTES # (AUTO) 0.9 (1.0-3.2); LYMPHOCYTES % 12.7 % (18.0-39.1); MEAN CORPUSCULAR HEMOGLOBIN 24.2 pg (28-32); MEAN CORPUSCULAR HGB CONC 31.2 g/dL (31-35); MEAN CORPUSCULAR VOLUME 77.6 fL (81-99); MONOCYTES # (AUTO) 0.7 (0.2-0.8); MONOCYTES % 10.2 % (4.4-11.3); NEUTROPHILS # (AUTO) 5.3 (2.1-6.9); PLATELET COUNT 115 x10e3/uL (140-360); RED BLOOD COUNT 6.52 x10e6/uL (4.3-5.7); RED CELL DISTRIBUTION WIDTH 27.5 % (11.7-14.4)
[2020-07-13 11:55] LABS: INR 1.34; PROTHROMBIN TIME 17.3 seconds (11.9-14.5)
[2020-07-13 11:56] LABS: PARTIAL THROMBOPLASTIN TIME 31.8 seconds (23.8-35.5)
[2020-07-13 12:03] LABS: ALBUMIN 3.7 g/dL (3.5-5.0); ALBUMIN/GLOBULIN RATIO 1.1 (0.8-2.0); ANION GAP 20.1 mmol/L (8-16); CALCIUM 9.2 mg/dL (8.4-10.2); CREATININE, SERUM 1.68 mg/dL (0.72-1.25)
[2020-07-13 12:09] LABS: CREATINE KINASE MB 2.6 ng/mL (0-5.0)
[2020-07-13 12:13] LABS: POTASSIUM 2.1 mmol/L (3.5-5.1)
[2020-07-13] MEDS ORDERED: DIATRIZOATE MEGL/DIATRIZOA SOD 30 ML BTL PO ONE (12:16)
[2020-07-13] MEDS: POTASSIUM CHLORIDE 20 MEQ TAB CR PO NR (14:37)
[2020-07-13] MEDS ORDERED: ONDANSETRON HCL INJ 2MG/ML 2ML 2 MG/ML VIAL IV PRN (15:00)
[2020-07-13] MEDS ORDERED: MORPHINE SULFATE 2 MG/ML SYR 1ML IV NR (15:15)
[2020-07-13] MEDS: POTASSIUM CHLORIDE 10MEQ/100ML 100 ML IV SCH ×3 (15:50→19:32)
[2020-07-13] MEDS ORDERED: ACETAMINOPHEN 325 MG TAB PO PRN (17:00)
[2020-07-13] MEDS ORDERED: HYDRALAZINE HCL 20 MG/ML VIAL IV PRN (17:00)
[2020-07-13] MEDS ORDERED: INDOMETHACIN 25 MG CAP PO PRN (17:15)
[2020-07-13 17:20] LABS: ABG HCO3 33 mmol/L (22-26); ABG PCO2 46 mmHg (35-45); ABG PH 7.46 (7.35-7.45); ABG PO2 46 mmHg (80-105)
[2020-07-13 17:21] LABS: ABG TCO2 34
[2020-07-13] MEDS: FAMOTIDINE 20 MG/2 ML VIAL IV SCH (17:30)
[2020-07-13] MEDS ORDERED: POTASSIUM CHLORIDE 10MEQ/100ML 0 ML ONE (19:37)
[2020-07-13 20:22] VITALS: BP 92/64
[2020-07-13 20:23] LABS: CREATINE KINASE MB 2.2 ng/mL (0-5.0)
[2020-07-13] MEDS ORDERED: FUROSEMIDE INJ 10 MG/ML 4 ML VIAL IV SCH (21:00)
[2020-07-13] MEDS ORDERED: ULORIC80 MG PO (21:54)
[2020-07-13] MEDS ORDERED: POTASSIUM CHLORIDE 20 MEQ TAB CR PO NR (22:00)
[2020-07-13 23:06] LABS: ABG HCO3 33 mmol/L (22-26); ABG PCO2 57 mmHg (35-45); ABG PH 7.37 (7.35-7.45); ABG PO2 52 mmHg (80-105); ABG TCO2 35
[2020-07-13] MEDS ORDERED: FUROSEMIDE INJ 10 MG/ML 4 ML VIAL IV STA (23:13)
[2020-07-13] MEDS ORDERED: FUROSEMIDE INJ 100 MG in SODIUM CHLORIDE 0.9% 100 ML 90 ML IV SCH ×2 (23:30→23:45)
[2020-07-13 23:58] VITALS: BP 102/55
[2020-07-14] VITALS (59 sets, daily range): BP systolic 61–107; BP diastolic 30–85
[2020-07-14] MEDS ORDERED: FUROSEMIDE INJ 10 MG/ML 10 ML VIAL ONE (00:14)
[2020-07-14] MEDS ORDERED: SODIUM CHLORIDE 0.9% 100 ML ONE (00:15)
[2020-07-14] MEDS: SPIRONOLACTONE 25 MG TAB PO SCH ×2 (00:42→08:34)
[2020-07-14] MEDS ORDERED: ALBUMIN 25% 12.5GM 50ML 100 ML IV ONE ×2 (02:12→20:49)
[2020-07-14] MEDS ORDERED: ALBUMIN 25% 12.5GM 0.25 GM/ML BTL IV ONE (02:15)
[2020-07-14 05:37] LABS: BASOPHILS # (AUTO) 0.1 (0.0-0.1); BASOPHILS % 0.7 % (0.0-1.0); EOSINOPHILS # (AUTO) 0.1 (0.0-0.4); EOSINOPHILS % 1.7 % (0.0-6.0); HEMATOCRIT 47.6 % (38.2-49.6); HEMOGLOBIN 14.8 g/dL (14.0-18.0); LYMPHOCYTES # (AUTO) 0.9 (1.0-3.2); LYMPHOCYTES % 13.3 % (18.0-39.1); MEAN CORPUSCULAR HEMOGLOBIN 24.3 pg (28-32); MEAN CORPUSCULAR HGB CONC 31.1 g/dL (31-35); MEAN CORPUSCULAR VOLUME 78.2 fL (81-99); MONOCYTES # (AUTO) 0.7 (0.2-0.8); MONOCYTES % 10.2 % (4.4-11.3); NEUTROPHILS # (AUTO) 5.2 (2.1-6.9); NEUTROPHILS % 73.5 % (38.7-80.0); PLATELET COUNT 105 x10e3/uL (140-360); RED BLOOD COUNT 6.09 x10e6/uL (4.3-5.7); RED CELL DISTRIBUTION WIDTH 27.1 % (11.7-14.4)
[2020-07-14 06:06] LABS: ALBUMIN 3.7 g/dL (3.5-5.0); ALBUMIN/GLOBULIN RATIO 1.3 (0.8-2.0); ANION GAP 17.3 mmol/L (8-16); CALCIUM 9.3 mg/dL (8.4-10.2); CREATININE, SERUM 1.73 mg/dL (0.72-1.25)
[2020-07-14 06:12] LABS: POTASSIUM 2.3 mmol/L (3.5-5.1)
[2020-07-14] MEDS ORDERED: SODIUM CHLORIDE 0.9% 1000ML 1,000 ML ONE (06:25)
[2020-07-14 06:36] LABS: CREATINE KINASE MB 1.4 ng/mL (0-5.0)
[2020-07-14] MEDS ORDERED: PANTOPRAZOLE SOD 40 MG TABEC PO SCH (07:30)
[2020-07-14] MEDS ORDERED: POTASSIUM CHLORIDE 10MEQ/100ML 300 ML IV ONE (08:00)
[2020-07-14 08:16] LABS: POLYCHROMASIA FEW; TARGET CELLS FEW
[2020-07-14] MEDS: FAMOTIDINE 20 MG/2 ML VIAL IV SCH ×2 (08:34→16:45)
[2020-07-14] MEDS ORDERED: ASPIRIN 81 MG CHEW TAB PO SCH (09:00)
[2020-07-14] MEDS ORDERED: POTASSIUM CHLORIDE 20 MEQ TAB CR PO SCH (09:00)
[2020-07-14] MEDS: FUROSEMIDE INJ 100 MG in SODIUM CHLORIDE 0.9% 100 ML 90 ML IV SCH ×2 (10:00→14:26)
[2020-07-14 12:49] LABS: BODY FLUID APPEARANCE TURBID; BODY FLUID COLOR RED; BODY FLUID TYPE PERITONEAL
[2020-07-14 12:54] LABS: RBC,BODY FLUID 44015 cells/uL
[2020-07-14 12:55] LABS: WBC,BODY FLUID 1188 cells/uL
[2020-07-14 13:08] LABS: LYMPHOCYTES,BODY FLUID 32 %; MONO/MACROPHG,BODY FLUID 63 %; NEUTROPHILS,BODY FLUID 5 %
[2020-07-14 13:31] LABS: ABG HCO3 33 mmol/L (22-26); ABG PCO2 44 mmHg (35-45); ABG PH 7.48 (7.35-7.45); ABG PO2 80 mmHg (80-105); ABG TCO2 35
[2020-07-14] MEDS: ALBUMIN 25% 25GM 100ML 0.25 GM/ML BTL IV SCH ×2 (14:26→20:49)
[2020-07-14 14:47] LABS: BILIRUBIN,URINE SMALL (NEGATIVE); CLARITY,URINE SL CLOUDY (CLEAR); COLOR,URINE STRAW (YELLOW); KETONES,URINE NEGATIVE (NEGATIVE); LEUKOCYTE ESTERASE ,URINE SMALL (NEGATIVE); NITRITE,URINE NEGATIVE (NEGATIVE); PROTEIN,URINE DIPSTICK NEGATIVE (NEGATIVE); URINE UROBILINOGEN 4 mg/dL (0.2 - 1)
[2020-07-14 15:02] LABS: BACTERIA,URINE MODERATE /HPF; EPITHELIAL CELLS,URINE FEW /LPF; RBC,URINE 21-50 /HPF (0-5)
[2020-07-14 15:06] LABS: SODIUM,URINE 37 mmol/L
[2020-07-14] MEDS ORDERED: VANCOMYCIN 1GM/NS 250 ML 250 ML IV ONE (16:30)
[2020-07-14] MEDS: CEFEPIME 1GM/NS 0.9% 50 ML 50 ML IV SCH (16:45)
[2020-07-14] MEDS: POTASSIUM CHLORIDE 20 MEQ TAB CR PO SCH (16:45)
[2020-07-14] MEDS ORDERED: HEPARIN 25,000 UNIT 1,500 UNIT in DEXTROSE 5% 250ML 250 ML IV SCH (17:15)
[2020-07-14] MEDS ORDERED: POTASSIUM CHLORIDE 20MEQ/100ML 200 ML IV ONE (17:15)
[2020-07-14] MEDS: HEPARIN 25,000 UNIT 1,500 UNIT in DEXTROSE 5% 250ML 250 ML IV SCH (18:06)
[2020-07-14 21:07] LABS: BASOPHILS # (AUTO) 0.1 (0.0-0.1); BASOPHILS % 0.8 % (0.0-1.0); EOSINOPHILS # (AUTO) 0.8 (0.0-0.4); HEMATOCRIT 48.7 % (38.2-49.6); HEMOGLOBIN 15.1 g/dL (14.0-18.0); LYMPHOCYTES # (AUTO) 0.6 (1.0-3.2); LYMPHOCYTES % 5.8 % (18.0-39.1); MEAN CORPUSCULAR HEMOGLOBIN 24.5 pg (28-32); MEAN CORPUSCULAR VOLUME 78.9 fL (81-99); MONOCYTES # (AUTO) 0.8 (0.2-0.8); MONOCYTES % 8.5 % (4.4-11.3); NEUTROPHILS # (AUTO) 7.4 (2.1-6.9); NEUTROPHILS % 76.3 % (38.7-80.0); PLATELET COUNT 144 x10e3/uL (140-360); RED BLOOD COUNT 6.17 x10e6/uL (4.3-5.7); RED CELL DISTRIBUTION WIDTH 27.3 % (11.7-14.4)
[2020-07-14] MEDS: VASOPRESSIN 60 UNIT in DEXTROSE 5% 50ML 57 ML IV SCH (21:27)
[2020-07-14 22:06] LABS: ALBUMIN 4.3 g/dL (3.5-5.0); ALBUMIN/GLOBULIN RATIO 1.3 (0.8-2.0); ANION GAP 22.8 mmol/L (8-16); CALCIUM 9.6 mg/dL (8.4-10.2); CREATININE, SERUM 1.84 mg/dL (0.72-1.25)
[2020-07-14 22:07] LABS: POTASSIUM 2.8 mmol/L (3.5-5.1)
[2020-07-15] VITALS (28 sets, daily range): BP systolic 72–106; BP diastolic 38–76
[2020-07-15] MEDS: CEFEPIME 1GM/NS 0.9% 50 ML 50 ML IV SCH ×2 (04:00→16:28)
[2020-07-15] MEDS ORDERED: ALBUMIN 25% 12.5GM 50ML 100 ML IV ONE (04:30)
[2020-07-15 04:59] LABS: BASOPHILS % 0.4 % (0.0-1.0); EOSINOPHILS # (AUTO) 0.1 (0.0-0.4); EOSINOPHILS % 0.5 % (0.0-6.0); HEMATOCRIT 47.9 % (38.2-49.6); HEMOGLOBIN 15.1 g/dL (14.0-18.0); LYMPHOCYTES # (AUTO) 0.7 (1.0-3.2); LYMPHOCYTES % 6.9 % (18.0-39.1); MEAN CORPUSCULAR HEMOGLOBIN 24.8 pg (28-32); MEAN CORPUSCULAR HGB CONC 31.5 g/dL (31-35); MEAN CORPUSCULAR VOLUME 78.8 fL (81-99); MONOCYTES # (AUTO) 0.8 (0.2-0.8); MONOCYTES % 7.9 % (4.4-11.3); NEUTROPHILS # (AUTO) 8.3 (2.1-6.9); NEUTROPHILS % 83.7 % (38.7-80.0); PLATELET COUNT 102 x10e3/uL (140-360); RED BLOOD COUNT 6.08 x10e6/uL (4.3-5.7); RED CELL DISTRIBUTION WIDTH 27.6 % (11.7-14.4)
[2020-07-15 05:19] LABS: ALBUMIN 3.8 g/dL (3.5-5.0); ALBUMIN/GLOBULIN RATIO 1.4 (0.8-2.0); ANION GAP 20.9 mmol/L (8-16); CALCIUM 9.2 mg/dL (8.4-10.2); CREATININE, SERUM 2.14 mg/dL (0.72-1.25)
[2020-07-15 05:23] LABS: POTASSIUM 2.9 mmol/L (3.5-5.1)
[2020-07-15] MEDS: ALBUMIN 25% 25GM 100ML 0.25 GM/ML BTL IV SCH (05:38)
[2020-07-15] MEDS: FUROSEMIDE INJ 100 MG in SODIUM CHLORIDE 0.9% 100 ML 90 ML IV SCH ×2 (06:16→16:30)
[2020-07-15] MEDS ORDERED: SODIUM CHLORIDE 0.9% 500ML 500 ML ONE (08:45)
[2020-07-15] MEDS ORDERED: SODIUM CHLORIDE 0.9% 500ML 500 ML IV ONE (08:45)
[2020-07-15] MEDS: POTASSIUM CHLORIDE 20 MEQ TAB CR PO SCH ×2 (09:00→15:55)
[2020-07-15] MEDS: SPIRONOLACTONE 25 MG TAB PO SCH (09:00)
[2020-07-15 09:08] LABS: ABG PH 7.42 (7.35-7.45)
[2020-07-15 09:09] LABS: ABG HCO3 29 mmol/L (22-26); ABG PCO2 44 mmHg (35-45); ABG PO2 52 mmHg (80-105); ABG TCO2 30
[2020-07-15] MEDS: FAMOTIDINE 20 MG/2 ML VIAL IV SCH ×2 (09:50→16:29)
[2020-07-15] MEDS: PANTOPRAZOLE 40 MG 10ML VIAL IV SCH (10:55)
[2020-07-15] MEDS ORDERED: SODIUM CHLORIDE 0.9% IV SCH (11:00)
[2020-07-15] MEDS ORDERED: DAPTOMYCIN IV SCH (11:00)
[2020-07-15] MEDS ORDERED: POTASSIUM CHLORIDE 20MEQ/100ML 200 ML IV ONE (14:15)
[2020-07-15] MEDS ORDERED: ACETAMINOPHEN 325 MG TAB PO PRN (14:30)
[2020-07-15] MEDS ORDERED: LIDOCAINE JELLY 2% 10ML URO-JET TOP ONE (15:00)
[2020-07-15] MEDS: OCTREOTIDE ACETATE 0.05 MG/ML AMP SQ SCH ×2 (15:54→21:17)
[2020-07-15] MEDS: MIDODRINE HCL 5 MG TABLET PO SCH (16:29)
[2020-07-15] MEDS: HEPARIN 25,000 UNIT 1,500 UNIT in DEXTROSE 5% 250ML 250 ML IV SCH (17:30)
[2020-07-15] MEDS ORDERED: B&O 60MG R/S 60 MG SUPP PR PRN (18:00)
[2020-07-15] MEDS ORDERED: IOPAMIDOL 300 MG/ML 15ML VIAL IT ONE (18:10)
[2020-07-15] MEDS: VASOPRESSIN 60 UNIT in DEXTROSE 5% 50ML 57 ML IV SCH (18:55)
[2020-07-15] MEDS ORDERED: ALBUMIN 25% 12.5GM 0.25 GM/ML BTL IV ONE (22:45)
[2020-07-16] VITALS (16 sets, daily range): BP systolic 76–114; BP diastolic 40–75
[2020-07-16] MEDS: FUROSEMIDE INJ 100 MG in SODIUM CHLORIDE 0.9% 100 ML 90 ML IV SCH ×2 (02:36→12:36)
[2020-07-16] MEDS: CEFEPIME 1GM/NS 0.9% 50 ML 50 ML IV SCH (04:03)
[2020-07-16 04:56] LABS: BASOPHILS % 0.3 % (0.0-1.0); EOSINOPHILS % 0.1 % (0.0-6.0); HEMOGLOBIN 15.7 g/dL (14.0-18.0); LYMPHOCYTES # (AUTO) 0.9 (1.0-3.2); LYMPHOCYTES % 8.1 % (18.0-39.1); MEAN CORPUSCULAR HEMOGLOBIN 24.5 pg (28-32); MEAN CORPUSCULAR HGB CONC 30.8 g/dL (31-35); MEAN CORPUSCULAR VOLUME 79.6 fL (81-99); MONOCYTES # (AUTO) 0.8 (0.2-0.8); MONOCYTES % 7.8 % (4.4-11.3); NEUTROPHILS # (AUTO) 8.7 (2.1-6.9); NEUTROPHILS % 82.8 % (38.7-80.0); PLATELET COUNT 107 x10e3/uL (140-360); RED BLOOD COUNT 6.41 x10e6/uL (4.3-5.7); RED CELL DISTRIBUTION WIDTH 28.3 % (11.7-14.4)
[2020-07-16 05:17] LABS: ALBUMIN 4.1 g/dL (3.5-5.0); ALBUMIN/GLOBULIN RATIO 1.6 (0.8-2.0); ANION GAP 27.3 mmol/L (8-16); CALCIUM 9.8 mg/dL (8.4-10.2); CREATININE, SERUM 2.99 mg/dL (0.72-1.25); POTASSIUM 3.3 mmol/L (3.5-5.1)
[2020-07-16] MEDS: FAMOTIDINE 20 MG/2 ML VIAL IV SCH (08:34)
[2020-07-16] MEDS: PANTOPRAZOLE 40 MG 10ML VIAL IV SCH (08:34)
[2020-07-16] MEDS: SPIRONOLACTONE 25 MG TAB PO SCH (08:34)
[2020-07-16] MEDS: MIDODRINE HCL 5 MG TABLET PO SCH ×2 (08:34→12:35)
[2020-07-16] MEDS: POTASSIUM CHLORIDE 20 MEQ TAB CR PO SCH (08:35)
[2020-07-16] MEDS: OCTREOTIDE ACETATE 0.05 MG/ML AMP SQ SCH (08:35)
== END 2020-07-17 00:17 | disposition expired | DRG 871 ==
LOC: ER 11:20 → ERHOLD 15:09 → IMCU 19:48 → ICU 07-14 12:30
PROVIDERS: ADMIT Internal Medicine; ATTEND Internal Medicine
PROC: 5A09457 Assistance with Respiratory Ventilation, 24-96 Consecutive Hours, Continuous Positive Airway Pressure (ICD-10-PCS; principal; 2020-07-13)
PROC: 02HV33Z Insertion of Infusion Device into Superior Vena Cava, Percutaneous Approach (ICD-10-PCS; 2020-07-14)
PROC: B548ZZA Ultrasonography of Superior Vena Cava, Guidance (ICD-10-PCS; 2020-07-14)
PROC: 0W9G3ZZ Drainage of Peritoneal Cavity, Percutaneous Approach (ICD-10-PCS; 2020-07-14)
DX: A41.9 Sepsis, unspecified organism (principal); J96.21 Acute and chronic respiratory failure with hypoxia; I50.43 Acute on chronic combined systolic (congestive) and diastolic (congestive) heart failure; K76.7 Hepatorenal syndrome; J96.22 Acute and chronic respiratory failure with hypercapnia; N17.9 Acute kidney failure, unspecified; Z68.44 Body mass index [BMI] 60.0-69.9, adult; R18.8 Other ascites; E66.2 Morbid (severe) obesity with alveolar hypoventilation; I13.0 Hypertensive heart and chronic kidney disease with heart failure and stage 1 through stage 4 chronic kidney disease, or unspecified chronic kidney disease; N39.0 Urinary tract infection, site not specified; K74.60 Unspecified cirrhosis of liver; R65.20 Severe sepsis without septic shock; E78.5 Hyperlipidemia, unspecified; E87.6 Hypokalemia; E66.01 Morbid (severe) obesity due to excess calories; Z83.3 Family history of diabetes mellitus; Z87.891 Personal history of nicotine dependence; F10.21 Alcohol dependence, in remission; Z11.59 Encounter for screening for other viral diseases; D69.6 Thrombocytopenia, unspecified; N18.9 Chronic kidney disease, unspecified; E11.22 Type 2 diabetes mellitus with diabetic chronic kidney disease; R31.0 Gross hematuria; N47.1 Phimosis; Z66 Do not resuscitate; Z79.82 Long term (current) use of aspirin
CPT/HCPCS: 36415; 36569; 36600; 49083; 71045; 71250; 74176; 74430; 74470; 76770; 76857; 80053; 80202; 81001; 82040; 82550; 82553; 82805; 82945; 82948; 83036; 83520; 83615; 83735; 83880; 84132; 84157; 84300; 84443; 84484; 85025; 85610; 85730; 86021; 86039; 86160; 86225; 87040; 87070; 87071; 87086; 87205; 88112; 88305; 89051; 93005; 93306; 94660; 99285; J0692; J1940; J2270; J2354; J2405; J3370; J3480; J7030; J7040; J7050; P9047; Q9967; U0002